=== PATIENT | female | born 1950 | race African-American/Black ===

== ENCOUNTER 2018-03-24 21:30 | Inpatient (IN) | payer MEDICARE, OTHER ==
[~2018-03-24] VITALS: Ht 157.5 cm; Wt 87.1 kg
--- NOTE | 2018-03-24 21:35 | NUR ---
PT TO ER BED 4. BIBRA FROM HOME C/O ABD PAIN FROM GASTRIC SLEEVE CAUSING HER TO BE SOB. PT PLACED ON RUNNER MAN. VSS/RESP EVEN UNLABORED/NAD NOTED/SKIN WARM AND DRY/AFEBRILE/DENIES N-V-D/AOX4. AWAITNG MD AVILA.
--- NOTE | 2018-03-24 22:27 | NUR ---
Sharona shirley in [facility] - 03/24/18 at 2232 by SRUTHI URINE SPECIMEN OBTAINED AND SENT TO THE LAB.
[2018-03-24 22:35] LABS: BASOPHILS % (AUTO) 0.4 % (0.0-2.0); EOSINOPHILS % (AUTO) 2.9 % (0.0-6.0); HEMATOCRIT 35 % (33-45); HEMOGLOBIN 11.5 g/dL (11.5-14.8); LYMPHOCYTES # (AUTO) 3.1 /CMM (0.8-4.8); LYMPHOCYTES % (AUTO) 32.1 % (20.0-44.0); MEAN CORPUSCULAR HEMOGLOBIN 32 PG (26.0-33.0); MEAN CORPUSCULAR HGB CONC 33 g/dl (31.0-36.0); MEAN CORPUSCULAR VOLUME 96 fL (82-100); MONOCYTES # (AUTO) 0.5 /CMM (0.1-1.30); MONOCYTES % (AUTO) 4.9 % (2.0-12.0); NEUTROPHILS # (AUTO) 5.7 /CMM (1.8-8.9); NEUTROPHILS % (AUTO) 59.7 % (43.0-81.0); PLATELET COUNT (AUTO) 298 /CMM (150-450); RDW COEFFICIENT OF VARIATION 15.6 (11.5-15.0); RED BLOOD CELL COUNT(AUTO) 3.64 MIL/uL (4.0-5.2); WHITE BLOOD COUNT (AUTO) 9.6 K/uL (4.3-11.0)
[2018-03-24 22:47] LABS: CALCIUM, SERUM 8.5 mg/dL (8.5-10.1); CREATININE 1.4 mg/dL (0.6-1.3); POTASSIUM 3.4 mmol/L (3.5-5.1)
[2018-03-24] MEDS ORDERED: HYDROCODONE/APAP 5/325MG 1 EACH TABLET ONE (22:48)
--- NOTE | 2018-03-24 22:51 | NUR ---
PT TO CT VIA STRETCHER, VSS.
[2018-03-24 22:58] LABS: ALBUMIN 3.6 g/dL (3.4-5.0); BILIRUBIN,DIRECT 0.2 mg/dL (0.0-0.2); BILIRUBIN,TOTAL 0.6 mg/dL (0.2-1.0); TOTAL PROTEIN, SERUM 7.7 g/dL (6.4-8.2)
[2018-03-24] MEDS ORDERED: HYDROCODONE/APAP 5/325MG 1 EACH TABLET PO ONE (23:00)
--- NOTE | 2018-03-24 23:50 | NUR ---
CALLED NURSE SUP FOR MED/SURG BED
--- NOTE | 2018-03-24 23:52 | NUR ---
PAGED [facility] FOR PANEL - RETAIL ACCOUNT EXECUTIVE JUAN MOYA
[2018-03-24] MEDS ORDERED: HYDR12.5 PO (23:55)
[2018-03-24] MEDS ORDERED: LORA-259 PO (23:55)
[2018-03-24] MEDS ORDERED: FLUO10CA26 PO (23:55)
[2018-03-24] MEDS ORDERED: LEVO137T24 PO (23:55)
[2018-03-24] MEDS ORDERED: LOSA25TA13 PO (23:55)
[2018-03-24] MEDS ORDERED: METO-356 PO (23:55)
--- NOTE | 2018-03-24 23:55 | NUR ---
UNABLE TO OBTAIN URINE, MD MADE AWARE. NO NEW ORDERS RECEIVED.
--- NOTE | 2018-03-25 00:10 | NUR ---
MD MOYA AT BEDSIDE SPEAKING WITH PT.
--- NOTE | 2018-03-25 00:14 | NUR ---
Note fern in ED - 03/25/18 at 0015 by SRUTHI G IV TO L HAND X 1 ATTEMPT USING ASEPTIC TECH. IV FLUSHES EASILY WITH NS, NO S/S INFILTRATION NOTED AT THIS TIME.
--- NOTE | 2018-03-25 00:15 | NUR ---
20G IV TO L HAND X 1 ATTEMPT USING ASEPTIC TECH. IV FLUSHES EASILY WITH NS, NO S/S INFILTRATION NOTED AT THIS TIME.
[2018-03-25] MEDS ORDERED: ONDANSETRON HCL/PF 4 MG/2 ML VIAL ONE (00:26)
[2018-03-25] MEDS ORDERED: MORPHINE SULFATE INJ 4 MG/ML DISP.SYRIN ONE (00:26)
--- NOTE | 2018-03-25 00:42 | NUR ---
REPORT GIVEN TO JUAN LUIS SHEETS FOR GLADIS.
--- NOTE | 2018-03-25 00:44 | NUR ---
URINE SPECIMEN OBTAINED AND SENT TO THE LAB.
[2018-03-25 00:55] LABS: APPEARANCE,URINE CLEAR (CLEAR); BILIRUBIN,URINE NEGATIVE (NEGATIVE); BLOOD, URINE 1+ Ery/uL (NEGATIVE); COLOR,URINE YELLOW (YELLOW); KETONES,URINE NEGATIVE (NEGATIVE); LEUKOCYTE ESTERASE ,URINE NEGATIVE (NEGATIVE); NITRITE, URINE NEGATIVE (NEGATIVE); PROTEIN,URINE NEGATIVE (NEGATIVE); UGLUCOSE NEGATIVE (NEGATIVE); UROBILINOGEN,URINE 0.2 EU/dL (0.2)
--- NOTE | 2018-03-25 00:57 | NUR ---
PT TRANSPORTED VIA STRETCHER TO MS 308 WITH RN. BACK.
[2018-03-25] MEDS ORDERED: ONDANSETRON HCL/PF 4 MG/2 ML VIAL IVP ONE (01:00)
[2018-03-25] MEDS ORDERED: MORPHINE SULFATE INJ 2 MG/ML DISP.SYRIN IV ONE (01:00)
[2018-03-25 01:03] LABS: RBC,URINE 0-2 /HPF (0-2)
[2018-03-25 01:04] LABS: BACTERIA,URINE None seen /HPF (None Seen); SQUAMOUS EPITHELIAL CELL,UR Few /HPF (None Seen); WBC,URINE 0-2 /HPF (0-3)
--- NOTE | 2018-03-25 01:06 | NUR ---
Admit to Rm #[id number] on Med Surg status Dx Fx Compresssion Fx T12, A/Ox4 lying on bed C/o 2 lower back pain after receiving morphine in Ed. Lungs sound clear bilat. abd soft non tender b/s x4 M.A.E. good hand filling hand denies of pain radiating down leg. C/o insomonia will contact desk monitor Dr for sleep medicine. S/l 20 ga to intact. Also will request dania ayala for hx bipolar and pt is not taking any mood stablizer meds. skin w/d siderails up call light within reach.
[2018-03-25] MEDS ORDERED: ZOLP10TA2 PO (01:45)
[2018-03-25] MEDS ORDERED: ONDANSETRON HCL/PF 4 MG/2 ML VIAL IVP PRN (02:00)
[2018-03-25] MEDS ORDERED: MAGNESIUM HYDROXIDE 30 ML UDC PO PRN (02:00)
[2018-03-25] MEDS ORDERED: Z GUARD REMEDY 2 OZ OINT TP PRN (02:00)
[2018-03-25] MEDS ORDERED: ZOLPIDEM TARTRATE 5 MG TABLET PO PRN (02:00)
[2018-03-25] MEDS ORDERED: ACETAMINOPHEN 325 MG TABLET PO PRN (02:00)
--- NOTE | 2018-03-25 02:03 | NUR ---
Given ambien 10 mg for insomonia.
[2018-03-25] MEDS: ZOLPIDEM TARTRATE 10 MG TABLET PO PRN ×2 (02:34→23:01)
[2018-03-25] MEDS: IV NS 0.9% 1,000 ML IV PRN (03:55)
[2018-03-25] MEDS ORDERED: LORAZEPAM 1 MG TABLET PO PRN (04:00)
--- NOTE | 2018-03-25 05:23 | NUR ---
lYING IN BED EYES CLOSED REP EVEN AND UNLAB. SLEPT 3.5 HRS IV N.S. 09% INFUSING @ 75 CCHR TO LEFT HAND CHANELL WELL. RESTING COMFORTABLY DENIES OF ANY DISTRESS. SIDERAILS UP cALL LIGHT WITHIN REACH BED WHEEL LOCKED HEIGHT BED IN LOWEST POSITION. FALL PRECAUTIONS OBSERVED.
[2018-03-25 06:20] VITALS: BP 132/81
[2018-03-25 06:36] LABS: BASOPHILS % (AUTO) 0.5 % (0.0-2.0); EOSINOPHILS % (AUTO) 3.3 % (0.0-6.0); HEMATOCRIT 34 % (33-45); HEMOGLOBIN 11.4 g/dL (11.5-14.8); LYMPHOCYTES # (AUTO) 2.6 /CMM (0.8-4.8); LYMPHOCYTES % (AUTO) 29.7 % (20.0-44.0); MEAN CORPUSCULAR HEMOGLOBIN 32 PG (26.0-33.0); MEAN CORPUSCULAR HGB CONC 33 g/dl (31.0-36.0); MEAN CORPUSCULAR VOLUME 96 fL (82-100); MONOCYTES # (AUTO) 0.5 /CMM (0.1-1.30); MONOCYTES % (AUTO) 5.1 % (2.0-12.0); NEUTROPHILS # (AUTO) 5.5 /CMM (1.8-8.9); NEUTROPHILS % (AUTO) 61.4 % (43.0-81.0); PLATELET COUNT (AUTO) 282 /CMM (150-450); RDW COEFFICIENT OF VARIATION 15.7 (11.5-15.0); RED BLOOD CELL COUNT(AUTO) 3.56 MIL/uL (4.0-5.2); WHITE BLOOD COUNT (AUTO) 8.9 K/uL (4.3-11.0)
[2018-03-25 06:58] LABS: CALCIUM, SERUM 8.7 mg/dL (8.5-10.1); CREATININE 1.3 mg/dL (0.6-1.3); MAGNESIUM 1.9 mg/dL (1.8-2.4); PHOSPHORUS 4.3 mg/dL (2.5-4.9); POTASSIUM 3.4 mmol/L (3.5-5.1)
[2018-03-25] MEDS: LEVOTHYROXINE SODIUM 137 MCG TABLET PO SCH ×2 (07:05→08:58)
--- NOTE | 2018-03-25 07:30 | NUR ---
RN MS NOTES PT IN BED, ASLEEP, BREATHING PATTERN NORMAL AND NOT LABORED, NO SIGN OF PAIN OR DISTRESS, ON LOW BED FOR SAFETY, CALL LIGHT WITHIN REACH, KEPT ORAL AND MAXILLOFACIAL SURGERY RESIDENT BED.
[2018-03-25 08:00] VITALS: BP 139/80
[2018-03-25] MEDS: HYDROCODONE/APAP 5/325MG 1 EACH TABLET PO PRN ×3 (08:48→18:30)
[2018-03-25] MEDS: LOSARTAN POTASSIUM 25 MG TABLET PO SCH (08:50)
[2018-03-25] MEDS: HYDROCHLOROTHIAZIDE 25 MG TABLET PO SCH (08:50)
[2018-03-25] MEDS: Fluoxetine 10 mg capsule PO SCH (08:50)
[2018-03-25] MEDS: METOPROLOL SUCCINATE 25 MG TAB.SR.24H PO SCH (08:51)
[2018-03-25] MEDS: HEPARIN SODIUM, PORCINE 5000 UNITS/1 ML VIAL SQ SCH ×2 (09:00→21:16)
[2018-03-25] MEDS ORDERED: LORAZEPAM 1 MG TABLET PO SCH (09:00)
[2018-03-25] MEDS ORDERED: POTASSIUM CHLORIDE 20 MEQ TAB.PRT.SR PO ONE (11:00)
--- NOTE | 2018-03-25 13:00 | NUR ---
RN MS NOTES PT IN BED, AWAKE, ALERT AND ORIENTED, PAIN MEDICATION GIVEN FOR LOWER BACK PAIN, PT STATED THAT NORCO HELPS HER WITH HER PAIN SHE IS TAKING IT AT HOME, SEEN BY DR. MOSQUERA, TASIA GRADY ORDERED, SPOKE WITH CHARLY OF [employer]. NEEDS ATTENDED, CALL LIGHT WITHIN REACH.
[2018-03-25 16:00] VITALS: BP 148/88
--- NOTE | 2018-03-25 17:48 | NUR ---
JUAN LUIS DEL ROSARIO MADE A FOLLOW UP CALL TO [employer] [phone], PER TAISHA THERE IS A REQUEST ALREADY AND SOMEONE FROM THEIR [employer] WILL CONTACT US.
--- NOTE | 2018-03-25 18:48 | NUR ---
RN MS NOTES PT IN BED, AWAKE, ALERT AND ORIENTED, PAIN MEDICATION GIVEN FOR LOWER BACK PAIN ORDERED, CALL LIGHT WITHIN REACH, ALL NEEDS ATTENDED, AWAITING TLSO BRACE FITTING, SPOKE WITH TAISHA AND SAID HE WILL COME IN THE MORNING.
--- NOTE | 2018-03-25 19:18 | NUR ---
CAREER CENTER ADVISOR INITIAL NOTES Report received at bedside. Patient received in bed, awake and verbally responsive. Alert and oriented x4. Denies any pain at the moment. Stated that she's comfortable at the moment. Not in any type of distress. No SOB or labored breathing noted. Safety measures in place. Will continue to monitor and assess the patient. Addendum: 03/26/18 at 0628 by GUILLERMO ARCE RN CORRECTION RN INITIAL NOTES
[2018-03-25 19:59] VITALS: BP 151/84
[2018-03-26] MEDS: HYDROCODONE/APAP 5/325MG 1 EACH TABLET PO PRN ×4 (01:29→22:31)
--- NOTE | 2018-03-26 06:07 | NUR ---
ANATOMY PROFESSOR CLOSING NOTES Patient remained in bed, awake and verbally responsive. Aferbile. Complaints of back pain with help of pain mgmt (last given @0555am). IV on left hand #20g: patent and intact with NS 75ml/hr running, tolerating well. Not in any type of distress. No SOB or labored breathing noted. All needs anticipated and met. Assisted with ambulating. Safety measures in place. Bed in lowest position with call light within reach. Will continue to monitor and assess the patient. Addendum: 03/26/18 at 0627 by GUILLERMO ARCE RN CORRECTION MS RN CLOSING NOTES
[2018-03-26] MEDS: IV NS 0.9% 1,000 ML IV PRN ×2 (06:32→20:35)
[2018-03-26 06:36] LABS: BASOPHILS % (AUTO) 0.5 % (0.0-2.0); HEMATOCRIT 37 % (33-45); HEMOGLOBIN 12.3 g/dL (11.5-14.8); LYMPHOCYTES # (AUTO) 2.8 /CMM (0.8-4.8); LYMPHOCYTES % (AUTO) 35.1 % (20.0-44.0); MEAN CORPUSCULAR HEMOGLOBIN 32 PG (26.0-33.0); MEAN CORPUSCULAR HGB CONC 34 g/dl (31.0-36.0); MEAN CORPUSCULAR VOLUME 96 fL (82-100); MONOCYTES # (AUTO) 0.4 /CMM (0.1-1.30); MONOCYTES % (AUTO) 4.9 % (2.0-12.0); NEUTROPHILS # (AUTO) 4.4 /CMM (1.8-8.9); NEUTROPHILS % (AUTO) 55.5 % (43.0-81.0); PLATELET COUNT (AUTO) 281 /CMM (150-450); RDW COEFFICIENT OF VARIATION 15.6 (11.5-15.0); RED BLOOD CELL COUNT(AUTO) 3.83 MIL/uL (4.0-5.2)
[2018-03-26 06:42] LABS: CALCIUM, SERUM 8.3 mg/dL (8.5-10.1); CREATININE 1.3 mg/dL (0.6-1.3); MAGNESIUM 1.6 mg/dL (1.8-2.4); PHOSPHORUS 3.8 mg/dL (2.5-4.9); POTASSIUM 3.8 mmol/L (3.5-5.1)
--- NOTE | 2018-03-26 07:18 | NUR ---
MS RN NOTES No changes in patient's condition. Report given/endorsed to Melo RN
--- NOTE | 2018-03-26 07:24 | NUR ---
MS RN OPENING NOTES PATIENT RECEIVED AWAKE IN BED IN NO ACUTE SIGNS OF DISTRESS. HOB ELEVATED. A/O X4. ABLE TO VERBALIZED NEEDS, DENIES ANY PAIN OR DISCOMFORTS AT THIS TIME. ON ROOM AIR, RESPIRATIONS EVEN AND UNLABORED. IV ACCESS ON LEFT HAND INTACT AND PATENT, IVF OF NS @ 75ML/HR INFUSING, NO/S/S OF INFILTRATIONS NOTED. SAFETY MEASURES IN PLACE. BED IN LOW/LOCKED POSITION WITH SIDE-RAILS UP X 2. CALL LIGHT IN WITH REACH. WILL CONTINUE TO MONITOR PT ACCORDINGLY.
[2018-03-26 08:00] VITALS: BP 139/71
[2018-03-26] MEDS: METOPROLOL SUCCINATE 25 MG TAB.SR.24H PO SCH (08:48)
[2018-03-26] MEDS: HYDROCHLOROTHIAZIDE 25 MG TABLET PO SCH (08:48)
[2018-03-26] MEDS: LOSARTAN POTASSIUM 25 MG TABLET PO SCH (08:48)
[2018-03-26] MEDS: Fluoxetine 10 mg capsule PO SCH (08:49)
[2018-03-26] MEDS: HEPARIN SODIUM, PORCINE 5000 UNITS/1 ML VIAL SQ SCH ×2 (08:52→21:14)
[2018-03-26] MEDS: Magnesium 1GM/D5W 100ML PREMIX 100 ML IV SCH ×2 (09:46→11:10)
--- NOTE | 2018-03-26 10:35 | NUR ---
RN NOTES SEEN AND EVALUATED BY DR MAHER WITH ORDER TO DO CT CERVICAL SPINE W/O CONTRAST. PATIENT JUST LEFT TO HAVE THE CT SCAN VIA WHEELCHAIR.
--- NOTE | 2018-03-26 11:20 | NUR ---
RN NOTES/PAIN MANAGEMENT PT C/O PAIN ON HER LOWER BACK WITH PAIN SCALE OF 7/10, PRN NORCO 5/325MG PO GIVEN. WILL CONTINUE TO MONITOR.
--- NOTE | 2018-03-26 13:20 | NUR ---
RN NOTES TLSO BRACE DELIVERED AND UMBRELLA MENDER FITTED AND ADJUSTED BRACE TO PT'S BODY.
--- NOTE | 2018-03-26 15:23 | NUR ---
RN NOTES PATIENT WITH LOW LEVEL OF MG 1.6 TODAY, REPLACED WITH 1G/D5W 100ML X 2 BAGS ORDERED. WILL CONTINUE TO MONITOR.
[2018-03-26 16:00] VITALS: BP 137/78
--- NOTE | 2018-03-26 18:14 | NUR ---
MS RN CLOSING NOTES PATIENT AWAKE AND RESTING IN BED @ MODERATE HIGH BACKREST AT THIS TIME. A/O X4. ABLE TO MAKE NEEDS KNOWN. PT USES TLSO BRACE WHEN OUT OF BED. ON ROOM AIR, RESPIRATIONS EVEN WITH NO SOB NOTED. IV ACCESS ON LEFT HAND INTACT AND PATENT, IVF OF NS @ 75ML/HR INFUSING WELL, NO/S/S OF INFILTRATIONS NOTED. ALL REQUIRED NURSING CARE RENDERED. ALL SAFETY MEASURES KEPT IN PLACE. BED IN LOW/LOCKED POSITION WITH SIDE-RAILS UP X 2. CALL LIGHT AND BEDSIDE TABLE PLACED WITHIN EASY REACH OF PT. WILL ENDORSE TO PERSONAL LINES SALES EXECUTIVE NURSE FOR GLADIS..
--- NOTE | 2018-03-26 19:30 | NUR ---
MS/RN RECEIVE PATIENT AWAKE, ALERT, ORIENTED, COMFORTABLE, NO C/O PAIN, NO DISTRESS NOTED, CALL LIGHT WITHIN REACH. WILL MONITOR.
[2018-03-26 20:12] VITALS: BP 134/71
--- NOTE | 2018-03-26 22:00 | NUR ---
MS/RN IV LEAKING, IV REMOVED, ATTEMPTED TO INSERT IV X 2, NOT SUCCESSFUL. COCO, RN, ATTEMPTED X 3, NOT SUCCESSFUL, AIRCRAFT LAY OUT WORKER LV ATTEMPTED X 2, NOT SUCCESSFUL. PATIENT REFUSED ANYMORE IV INSERTION AT THIS TIME AND WANTED TO SLEEP. WILL TRY TO GET RN FROM ICU WHEN PATIENT WAKES UP LATER.
[2018-03-26] MEDS: ZOLPIDEM TARTRATE 10 MG TABLET PO PRN (23:31)
--- NOTE | 2018-03-27 01:20 | NUR ---
MS/RN PATIENT IS SLEEPING AT THIS TIME, EASILY AROUSABLE, APPEAR COMFORTABLE, NO SIGNS OF DISTRESS NOTED, CALL LIGHT IN REACH. WILL CONTINUE TO MONITOR.
--- NOTE | 2018-03-27 05:27 | NUR ---
MS/RN PATIENT WILL BE TRANSFERRED TO MS2 ROOM 205-2, REPORT GIVEN TO JUAN LUIS SILVA.
--- NOTE | 2018-03-27 06:44 | NUR ---
MS/RN PATIENT WAS TRANSFERRED TO ROOM 205-2 IN STABLE CONDITION.
--- NOTE | 2018-03-27 07:00 | NUR ---
MS RN NOTE: RECEIVED REPORT FROM PIERCE, PATIENT FROM [facility], NO ACUTE DISTRESS NOTED. BREATHING EVEN AND UNLABORED, NO SOB NOTED. IV TO RIGHT WRIST IN PLACE, INFUSING NS AT 75ML/HR. BED LOCKED AND IN LOWEST POSITION, CALL LIGHT IN REACH. WILL CONTINUE TO MONITOR.
[2018-03-27 08:00] VITALS: BP 142/65
--- NOTE | 2018-03-27 08:00 | NUR ---
MS RN AM NOTES PATIENT RECEIVED AWAKE IN BED IN NO ACUTE SIGNS OF DISTRESS. HOB ELEVATED. A/O X4. ABLE TO VERBALIZED NEEDS, DENIES ANY PAIN OR DISCOMFORTS AT THIS TIME. ON ROOM AIR, RESPIRATIONS EVEN AND UNLABORED. IV ACCESS ON RT WRIST INTACT AND PATENT, IVF OF NS @ 75ML/HR INFUSING, NO/S/S OF INFILTRATIONS NOTED. SAFETY MEASURES IN PLACE. BED IN LOW/LOCKED POSITION WITH SIDE-RAILS UP X 2. CALL LIGHT IN WITH REACH. WILL CONTINUE TO MONITOR PT ACCORDINGLY.
[2018-03-27] MEDS: Fluoxetine 10 mg capsule PO SCH (08:41)
[2018-03-27] MEDS: LEVOTHYROXINE SODIUM 137 MCG TABLET PO SCH (08:41)
[2018-03-27] MEDS: HYDROCODONE/APAP 5/325MG 1 EACH TABLET PO PRN (08:42)
[2018-03-27] MEDS: HYDROCHLOROTHIAZIDE 25 MG TABLET PO SCH (08:42)
[2018-03-27] MEDS: METOPROLOL SUCCINATE 25 MG TAB.SR.24H PO SCH (08:42)
[2018-03-27] MEDS: HEPARIN SODIUM, PORCINE 5000 UNITS/1 ML VIAL SQ SCH (08:43)
[2018-03-27] MEDS: LOSARTAN POTASSIUM 25 MG TABLET PO SCH (08:43)
[2018-03-27 16:00] VITALS: BP 157/89
--- NOTE | 2018-03-27 17:10 | NUR ---
DISCHARGED PT HOME WITH HOME HEALTH OF CHOICE OF THE PT.WITH STABLE V/S ACCOMPANIED BY HER SIGNIFICANT OTHER,LEANA.REMOVED PT'S IV H/L TO RT WRIST WITH NO BLEEDING NOTED.DENIES ANY PAIN OR DISTRESS.IN A MCCRAY TO GO HOME.
[2018-03-28 05:11] LABS: *SPE A/G RATIO 0.9 (0.7-1.7); *SPE ALBUMIN 3.2 g/dL (2.9-4.4); *SPE ALPHA-1-GLOBULIN 0.2 g/dL (0.0-0.4); *SPE ALPHA-2-GLOBULIN 0.8 g/dL (0.4-1.0); *SPE BETA GLOBULIN 1.1 g/dL (0.7-1.3); *SPE GLOBULIN, TOTAL 3.5 g/dL (2.2-3.9); *SPE M-SPIKE Not Observed g/dL (Not Observed); *SPEGAMMA GLOBULIN 1.4 g/dL (0.4-1.8)
[2018-03-29 12:18] LABS: *PEUR ALBUMIN 46.4 % (.); *PEUR ALPHA-1-GLOBULIN 6.5 % (.); *PEUR ALPHA-2-GLOBULIN 9.6 % (.); *PEUR BETA GLOBULIN 17.4 % (.); *PEUR GAMMA GLOBULIN 20.1 % (.)
== END 2018-03-27 17:10 | disposition home health service (06) | DRG 542 ==
LOC: ER 21:32 → MED 03-25 00:22 → MEDSG2 03-27 06:41
PROVIDERS: ADMIT Nurse Practitioner Acute Care; ATTEND Nurse Practitioner Acute Care
DX: M48.54XA Collapsed vertebra, not elsewhere classified, thoracic region, initial encounter for fracture (principal); N17.0 Acute kidney failure with tubular necrosis; I12.9 Hypertensive chronic kidney disease with stage 1 through stage 4 chronic kidney disease, or unspecified chronic kidney disease; N18.9 Chronic kidney disease, unspecified; E87.6 Hypokalemia; W18.30XA Fall on same level, unspecified, initial encounter; Y92.89 Other specified places as the place of occurrence of the external cause; G62.9 Polyneuropathy, unspecified; G89.29 Other chronic pain
CPT/HCPCS: 36415; 72125-TC; 72128-TC; 72131-TC; 80048-TC; 80061-TC; 80076-TC; 81000-TC; 83735-TC; 84100-TC; 84155; 84156; 84165; 84166; 84439-TC; 84443-TC; 85025-TC; 87081-TC; A4606; J1644; J2270; J2405; J3475; J7030; Z7610

== ENCOUNTER 2019-02-03 21:41 | Inpatient (IN) | payer MEDICARE, MEDICAID ==
[~2019-02-03] VITALS: Ht 157.5 cm; Wt 79.4 kg
[~2019-02-03 21:41] MED LIST: FLUO10CA26 PO; HYDR12.5 PO; LEVO137T24 PO; LORA-259 PO; LOSA25TA27 PO; METO-356 PO; ZOLP10TA2 PO
[2019-02-03 23:08] LABS: APPEARANCE,URINE Clear (CLEAR); BILIRUBIN,URINE SMALL (NEGATIVE); BLOOD, URINE Moderate Ery/uL (NEGATIVE); COLOR,URINE Yellow (YELLOW); KETONES,URINE Negative (NEGATIVE); LEUKOCYTE ESTERASE ,URINE Small (NEGATIVE); NITRITE, URINE Negative (NEGATIVE); PH,URINE 5.5 (5.0-8.0); PROTEIN,URINE 30 mg/dl (NEGATIVE); UGLUCOSE Negative (NEGATIVE); UROBILINOGEN,URINE 0.2 EU/dL (0.2)
[2019-02-03 23:13] LABS: BASOPHILS % (AUTO) 0.4 % (0.0-2.0); EOSINOPHILS % (AUTO) 2.7 % (0.0-6.0); HEMATOCRIT 36 % (33-45); HEMOGLOBIN 12.1 g/dL (11.5-14.8); LYMPHOCYTES # (AUTO) 1.8 /CMM (0.8-4.8); MEAN CORPUSCULAR HGB CONC 34 g/dl (31.0-36.0); MEAN CORPUSCULAR VOLUME 94 fL (82-100); MONOCYTES # (AUTO) 0.4 /CMM (0.1-1.30); MONOCYTES % (AUTO) 5.1 % (2.0-12.0); NEUTROPHILS # (AUTO) 6.2 /CMM (1.8-8.9); NEUTROPHILS % (AUTO) 70.8 % (43.0-81.0); PLATELET COUNT (AUTO) 350 /CMM (150-450); RED BLOOD CELL COUNT(AUTO) 3.79 MIL/uL (4.0-5.2); WHITE BLOOD COUNT (AUTO) 8.7 K/uL (4.3-11.0)
[2019-02-03 23:25] LABS: BACTERIA,URINE None seen /HPF (None Seen); SQUAMOUS EPITHELIAL CELL,UR Few /HPF (None Seen)
[2019-02-03 23:36] LABS: CALCIUM, SERUM 9.1 mg/dL (8.5-10.1); CREATININE 3.5 mg/dL (0.6-1.3); POTASSIUM 3.7 mmol/L (3.5-5.1)
[2019-02-03 23:42] LABS: ALBUMIN 3.7 g/dL (3.4-5.0); BILIRUBIN,DIRECT 0.2 mg/dL (0.0-0.2); SALICYLATE 10.3 mg/dL (2.8-20.0); TOTAL PROTEIN, SERUM 8.1 g/dL (6.4-8.2)
[2019-02-04] MEDS ORDERED: IV NS 0.9% 1,000 ML BAG IV ONE
[2019-02-04] MEDS ORDERED: Z GUARD REMEDY 2 OZ OINT TP PRN (01:00)
[2019-02-04] MEDS ORDERED: MAGNESIUM HYDROXIDE 30 ML UDC PO PRN (01:00)
[2019-02-04] MEDS ORDERED: ONDANSETRON HCL/PF 4 MG/2 ML VIAL IVP PRN (01:00)
[2019-02-04] MEDS ORDERED: LEVOFLOXACIN (500MG) 500 MG TABLET PO SCH (01:00)
[2019-02-04] MEDS ORDERED: MAG HYDROX/AL HYDROX/SIMETH 30 ML UDC PO PRN (01:00)
[2019-02-04] MEDS ORDERED: LEVOFLOXACIN (250MG) 250 MG TABLET PO SCH (01:30)
[2019-02-04 01:36] VITALS: BP 111/66
[2019-02-04] MEDS: ENOXAPARIN SODIUM 30 MG/0.3 ML DISP.SYRIN SQ SCH (02:50)
[2019-02-04] MEDS ORDERED: diphenhydrAMINE HCL 25 MG CAPSULE PO ONE (03:30)
[2019-02-04] MEDS: IV NS 0.9% 1,000 ML IV PRN (05:35)
[2019-02-04] MEDS: ACETAMINOPHEN 325 MG TABLET PO PRN ×3 (06:23→18:13)
[2019-02-04 06:49] LABS: BASOPHILS % (AUTO) 0.5 % (0.0-2.0); EOSINOPHILS % (AUTO) 2.8 % (0.0-6.0); HEMATOCRIT 32 % (33-45); LYMPHOCYTES # (AUTO) 2.1 /CMM (0.8-4.8); LYMPHOCYTES % (AUTO) 25.1 % (20.0-44.0); MEAN CORPUSCULAR HGB CONC 34 g/dl (31.0-36.0); MEAN CORPUSCULAR VOLUME 93 fL (82-100); MONOCYTES # (AUTO) 0.5 /CMM (0.1-1.30); MONOCYTES % (AUTO) 6.6 % (2.0-12.0); NEUTROPHILS # (AUTO) 5.3 /CMM (1.8-8.9); PLATELET COUNT (AUTO) 284 /CMM (150-450); RED BLOOD CELL COUNT(AUTO) 3.46 MIL/uL (4.0-5.2); WHITE BLOOD COUNT (AUTO) 8.2 K/uL (4.3-11.0)
[2019-02-04 07:02] LABS: THYROID STIMULATING HORMONE 0.126 uIU/mL (0.358-3.74)
[2019-02-04 07:09] LABS: BILIRUBIN,TOTAL 1.1 mg/dL (0.2-1.0); CALCIUM, SERUM 8.2 mg/dL (8.5-10.1); CREATININE 3.2 mg/dL (0.6-1.3); MAGNESIUM 1.9 mg/dL (1.8-2.4); PHOSPHORUS 5.2 mg/dL (2.5-4.9); POTASSIUM 3.7 mmol/L (3.5-5.1); TOTAL PROTEIN, SERUM 6.7 g/dL (6.4-8.2)
[2019-02-04 08:00] VITALS: BP 100/51
[2019-02-04] MEDS ORDERED: HYDROCHLOROTHIAZIDE 25 MG TABLET PO SCH (09:00)
[2019-02-04] MEDS: METOPROLOL SUCCINATE 25 MG TAB.SR.24H PO SCH (09:00)
[2019-02-04] MEDS ORDERED: LOSARTAN POTASSIUM 25 MG TABLET PO SCH (09:00)
[2019-02-04] MEDS: Fluoxetine 10 mg capsule PO SCH (09:10)
[2019-02-04] MEDS: LORAZEPAM 1 MG TABLET PO SCH ×3 (09:10→17:15)
[2019-02-04] MEDS: LEVOTHYROXINE SODIUM 137 MCG TABLET PO SCH (09:10)
[2019-02-04] MEDS: DOCUSATE SODIUM 100 MG CAPSULE PO SCH ×2 (09:10→17:15)
[2019-02-04] MEDS: PANTOPRAZOLE 40 MG TABLET.DR PO SCH (09:10)
[2019-02-04 16:00] VITALS: BP 95/56
[2019-02-04 17:30] VITALS: BP 95/56
[2019-02-04] MEDS ORDERED: ZOLPIDEM TARTRATE 10 MG TABLET PO SCH (18:00)
[2019-02-04 20:00] VITALS: BP 126/75
[2019-02-04 21:39] LABS: CREATININE, URINE 69.3 MG/DL (30.0-125.0)
[2019-02-04 22:19] LABS: APPEARANCE,URINE CLEAR (CLEAR); BILIRUBIN,URINE NEGATIVE (NEGATIVE); BLOOD, URINE TRACE Ery/uL (NEGATIVE); COLOR,URINE YELLOW (YELLOW); KETONES,URINE NEGATIVE (NEGATIVE); LEUKOCYTE ESTERASE ,URINE NEGATIVE (NEGATIVE); NITRITE, URINE NEGATIVE (NEGATIVE); PROTEIN,URINE NEGATIVE (NEGATIVE); UGLUCOSE NEGATIVE (NEGATIVE); UROBILINOGEN,URINE 0.2 EU/dL (0.2)
[2019-02-04 22:25] LABS: BACTERIA,URINE Rare /HPF (None Seen); RBC,URINE 0-2 /HPF (0-2); SQUAMOUS EPITHELIAL CELL,UR Few /HPF (None Seen)
[2019-02-04 22:48] LABS: EOSINOPHIL,URINE None Seen
[2019-02-04] MEDS: ZOLPIDEM TARTRATE 10 MG TABLET PO SCH (22:51)
[2019-02-05] MEDS: ENOXAPARIN SODIUM 30 MG/0.3 ML DISP.SYRIN SQ SCH (00:23)
[2019-02-05] MEDS: ACETAMINOPHEN 325 MG TABLET PO PRN ×3 (05:35→20:16)
[2019-02-05] MEDS: IV NS 0.9% 1,000 ML IV PRN (06:33)
[2019-02-05 07:52] LABS: BILIRUBIN,TOTAL 0.8 mg/dL (0.2-1.0); CALCIUM, SERUM 8.2 mg/dL (8.5-10.1); CREATININE 2.3 mg/dL (0.6-1.3); MAGNESIUM 1.8 mg/dL (1.8-2.4); PHOSPHORUS 3.6 mg/dL (2.5-4.9); POTASSIUM 3.3 mmol/L (3.5-5.1); TOTAL PROTEIN, SERUM 6.8 g/dL (6.4-8.2)
[2019-02-05 08:00] VITALS: BP 130/70
[2019-02-05 08:00] LABS: BASOPHILS % (AUTO) 0.3 % (0.0-2.0); EOSINOPHILS % (AUTO) 4.3 % (0.0-6.0); HEMATOCRIT 33 % (33-45); LYMPHOCYTES # (AUTO) 1.5 /CMM (0.8-4.8); LYMPHOCYTES % (AUTO) 25.4 % (20.0-44.0); MEAN CORPUSCULAR HGB CONC 34 g/dl (31.0-36.0); MEAN CORPUSCULAR VOLUME 93 fL (82-100); MONOCYTES # (AUTO) 0.5 /CMM (0.1-1.30); MONOCYTES % (AUTO) 8.1 % (2.0-12.0); NEUTROPHILS # (AUTO) 3.7 /CMM (1.8-8.9); NEUTROPHILS % (AUTO) 61.9 % (43.0-81.0); PLATELET COUNT (AUTO) 273 /CMM (150-450); RED BLOOD CELL COUNT(AUTO) 3.53 MIL/uL (4.0-5.2)
[2019-02-05] MEDS: LORAZEPAM 1 MG TABLET PO SCH ×4 (08:19→21:24)
[2019-02-05] MEDS: Fluoxetine 10 mg capsule PO SCH (08:19)
[2019-02-05] MEDS: LEVOTHYROXINE SODIUM 137 MCG TABLET PO SCH (08:19)
[2019-02-05] MEDS: DOCUSATE SODIUM 100 MG CAPSULE PO SCH ×2 (08:19→17:00)
[2019-02-05] MEDS: PANTOPRAZOLE 40 MG TABLET.DR PO SCH (08:20)
[2019-02-05] MEDS: METOPROLOL SUCCINATE 25 MG TAB.SR.24H PO SCH (08:20)
[2019-02-05] MEDS ORDERED: LEVOFLOXACIN (250MG) 250 MG TABLET PO SCH (09:00)
[2019-02-05] MEDS ORDERED: POTASSIUM CHLORIDE 10 MEQ TABLET.SA PO ONE (13:00)
[2019-02-05 16:00] VITALS: BP 132/78
[2019-02-05 20:17] VITALS: BP 128/66
[2019-02-05] MEDS: ZOLPIDEM TARTRATE 10 MG TABLET PO SCH (23:05)
[2019-02-06] MEDS: ENOXAPARIN SODIUM 30 MG/0.3 ML DISP.SYRIN SQ SCH (01:21)
[2019-02-06] MEDS: ACETAMINOPHEN 325 MG TABLET PO PRN ×2 (02:03→08:20)
[2019-02-06] MEDS: IV NS 0.9% 1,000 ML IV PRN (05:57)
[2019-02-06 08:00] VITALS: BP 141/71
[2019-02-06 08:08] LABS: *SPE A/G RATIO 1.1 (0.7-1.7); *SPE ALBUMIN 3.2 g/dL (2.9-4.4); *SPE ALPHA-1-GLOBULIN 0.3 g/dL (0.0-0.4); *SPE ALPHA-2-GLOBULIN 0.6 g/dL (0.4-1.0); *SPE BETA GLOBULIN 0.9 g/dL (0.7-1.3); *SPE M-SPIKE Not Observed g/dL (Not Observed); *SPEGAMMA GLOBULIN 1.3 g/dL (0.4-1.8)
[2019-02-06 08:15] LABS: BASOPHILS % (AUTO) 0.6 % (0.0-2.0); EOSINOPHILS % (AUTO) 3.3 % (0.0-6.0); HEMATOCRIT 32 % (33-45); HEMOGLOBIN 10.8 g/dL (11.5-14.8); LYMPHOCYTES # (AUTO) 1.5 /CMM (0.8-4.8); LYMPHOCYTES % (AUTO) 27.2 % (20.0-44.0); MEAN CORPUSCULAR HGB CONC 33 g/dl (31.0-36.0); MEAN CORPUSCULAR VOLUME 93 fL (82-100); MONOCYTES # (AUTO) 0.5 /CMM (0.1-1.30); MONOCYTES % (AUTO) 9.8 % (2.0-12.0); NEUTROPHILS # (AUTO) 3.3 /CMM (1.8-8.9); NEUTROPHILS % (AUTO) 59.1 % (43.0-81.0); PLATELET COUNT (AUTO) 256 /CMM (150-450); RED BLOOD CELL COUNT(AUTO) 3.48 MIL/uL (4.0-5.2); WHITE BLOOD COUNT (AUTO) 5.6 K/uL (4.3-11.0)
[2019-02-06] MEDS: DOCUSATE SODIUM 100 MG CAPSULE PO SCH (08:20)
[2019-02-06] MEDS: PANTOPRAZOLE 40 MG TABLET.DR PO SCH (08:20)
[2019-02-06] MEDS: LEVOTHYROXINE SODIUM 137 MCG TABLET PO SCH (08:20)
[2019-02-06 08:23] VITALS: BP 141/71
[2019-02-06] MEDS: METOPROLOL SUCCINATE 25 MG TAB.SR.24H PO SCH (08:23)
[2019-02-06 08:39] LABS: CALCIUM, SERUM 7.9 mg/dL (8.5-10.1); CREATININE 1.6 mg/dL (0.6-1.3); POTASSIUM 3.6 mmol/L (3.5-5.1)
[2019-02-06] MEDS ORDERED: Fluoxetine 10 mg capsule PO SCH (09:00)
[2019-02-06] MEDS: LORAZEPAM 1 MG TABLET PO SCH (12:05)
[2019-02-06] MEDS ORDERED: DOCU-270 PO (12:11)
[2019-02-06] MEDS ORDERED: FLUO-119 PO (12:11)
[2019-02-06] MEDS ORDERED: LEVO500T90 PO (12:11)
[2019-02-06 14:11] LABS: PTH, INTACT 57 pg/mL (15-65)
== END 2019-02-06 15:00 | DRG 689 ==
LOC: ER 21:43 → GPS 23:29 → TELE 02-04 00:42 → MED 02-04 01:05
PROVIDERS: ADMIT Registered Nurse; ATTEND Nurse Practitioner Acute Care
DX: N39.0 Urinary tract infection, site not specified (principal); N17.0 Acute kidney failure with tubular necrosis; I50.30 Unspecified diastolic (congestive) heart failure; R45.851 Suicidal ideations; E87.1 Hypo-osmolality and hyponatremia; F33.2 Major depressive disorder, recurrent severe without psychotic features; I11.0 Hypertensive heart disease with heart failure; E86.0 Dehydration; F41.9 Anxiety disorder, unspecified; Z98.84 Bariatric surgery status; Z98.890 Other specified postprocedural states; E66.9 Obesity, unspecified; E87.6 Hypokalemia; E03.9 Hypothyroidism, unspecified; Z79.899 Other long term (current) drug therapy; Z68.32 Body mass index [BMI] 32.0-32.9, adult; G47.00 Insomnia, unspecified; B96.89 Other specified bacterial agents as the cause of diseases classified elsewhere; F10.21 Alcohol dependence, in remission
CPT/HCPCS: 36415; 71045-TC; 80048-TC; 80053-TC; 80061-TC; 80076-TC; 80305; 81000-TC; 82550-TC; 82570-TC; 83735-TC; 83970; 84100-TC; 84155; 84155-TC; 84165; 84300-TC; 84443-TC; 85025-TC; 87081-TC; 87086-TC; G0378; G0480; J1650; J7030; Q0163

== ENCOUNTER 2019-02-06 15:15 | Inpatient (IN) | payer MEDICARE, MEDICAID ==
[~2019-02-06] VITALS: Ht 157.5 cm; Wt 81.6 kg
[~2019-02-06 15:15] MED LIST changes: +DOCU-270 PO; +FLUO-119 PO; +LEVO500T90 PO
[2019-02-06 16:00] VITALS: BP 158/86
[2019-02-06] MEDS ORDERED: TEMAZEPAM 7.5 MG CAPSULE PO PRN (16:00)
[2019-02-06] MEDS ORDERED: MAGNESIUM HYDROXIDE 30 ML UDC PO PRN (16:00)
[2019-02-06] MEDS ORDERED: QUETIAPINE FUMARATE 25 MG TABLET PO PRN (16:00)
[2019-02-06] MEDS ORDERED: MAG HYDROX/AL HYDROX/SIMETH 30 ML UDC PO PRN (16:00)
--- NOTE | 2019-02-06 17:00 | NUR ---
GPS/ RN-NOTES ADMITTED 68 FEMALE PATIENT FROM [facility]. PATIENT ON 5150 FOR DTS. HOLD WAS VERIFIED UPON FACE TO FACE ASSESSMENT. PATIENT ALERT ORIENTED X3 AMBULATORY WITH STEADY GAIT.NOTED PATIENT WITH DEPRESSED ,FLAT AFFECT AND EASILY ANGRY BEHAVIOR. PATIENT DENIES SI/HI. PATIENT'S RIGHT WAS REVIEWED WITH THE PATIENT WITH UNDERSTANDING AND BOOKLET WAS GIVEN TO HER. PATIENT WAS ORIENTED IN THE UNIT AND UNIT POLICIES. CALLED [facility] @ [phone] (SIGNIFICANT OTHERS) AND LEFT MSG. VIA VOICE MAIL. DR. WOO (PSYCHIATRIST) AND LUDY JOSUE ( PROFESSOR OF LANGUAGES) MADE AWARE WITH ORDERS. PATIENT REFUSED MRSA SWAB DESPITE EXPLANATIONS RISK AND BENEFITS, BODY ASSESSMENT DONE ON UPPER PART OF THE BODY BUT REFUSED LOWER EXTREMITY ASSESSMENT. WILL ENDORSE TO NEXT SHIFT FOR FOLLOW UP AND CONTINUITY OF ADMISSION.
--- NOTE | 2019-02-06 17:55 | NUR ---
GPS/RN-NOTES RECEIVED T.O FROM DR. WOO OF PROZAC 20MG P.O DAILY.NOTED AND CARRIED OUT.
--- NOTE | 2019-02-06 19:40 | NUR ---
GPS RN NOTES RECEIVED PT ON BED. SLEEPING. NO RESPIRATORY DISTRESS NOTED. PT CALM ON AGGRESSION. WILL MONITOR PT CLOSELY.
[2019-02-06] MEDS: ACETAMINOPHEN 325 MG TABLET PO PRN (20:04)
[2019-02-06 20:25] VITALS: BP 136/81
[2019-02-06] MEDS: LORAZEPAM 0.5 MG TABLET PO PRN (22:02)
[2019-02-07] MEDS: ACETAMINOPHEN 325 MG TABLET PO PRN ×3 (01:55→19:36)
[2019-02-07] MEDS: LORAZEPAM 0.5 MG TABLET PO PRN ×3 (04:23→21:39)
[2019-02-07 07:17] LABS: ALBUMIN 2.9 g/dL (3.4-5.0); BILIRUBIN,TOTAL 0.5 mg/dL (0.2-1.0); CALCIUM, SERUM 8.2 mg/dL (8.5-10.1); CREATININE 1.3 mg/dL (0.6-1.3); POTASSIUM 3.3 mmol/L (3.5-5.1); TOTAL PROTEIN, SERUM 6.6 g/dL (6.4-8.2)
[2019-02-07 07:21] LABS: CHOLESTEROL 108 mg/dL (<200); HDL CHOLESTEROL 53 mg/dL (40-60); LDL 49 mg/dL (0-99); TRIGLYCERIDES 54 mg/dL (30-150)
[2019-02-07] MEDS: LEVOTHYROXINE SODIUM 137 MCG TABLET PO SCH (07:46)
[2019-02-07 08:00] VITALS: BP 130/64
[2019-02-07] MEDS: METOPROLOL SUCCINATE 25 MG TAB.SR.24H PO SCH (08:32)
[2019-02-07] MEDS: DOCUSATE SODIUM 100 MG CAPSULE PO SCH ×2 (08:32→16:28)
[2019-02-07] MEDS: FLUOXETINE HCL 20 MG CAPSULE PO SCH (08:32)
[2019-02-07] MEDS ORDERED: ZOLPIDEM TARTRATE 5 MG TABLET PO PRN (10:00)
--- NOTE | 2019-02-07 10:26 | NUR ---
GPS/RN-NOTES PATIENT REQUESTING ATIVAN FOR ANXIETY. ATIVAN 0.5MG P.O GIVEN PRN ORDER. WILL CONT. MONITORING FOR SAFETY AND BEHAVIOR.
[2019-02-07] MEDS ORDERED: POTASSIUM CHLORIDE 20 MEQ TAB.PRT.SR PO SCH (11:30)
--- NOTE | 2019-02-07 11:30 | NUR ---
GPS/RN-NOTES PATIENT LAYING IN BED INTERMITTENTLY SLEEPING,CALM,NO ACUTE DISTRESS NOTED.
--- NOTE | 2019-02-07 11:31 | NUR ---
TORSTEN called the pts partner, Gaston Ruiz ([phone]), and was unable to leave a message regarding the pt.
--- NOTE | 2019-02-07 11:32 | NUR ---
TORSTEN called both of the numbers for Gaston Ruiz that were on the hold ([phone]) and ([phone]) and was unable to make contact or leave a message.
--- NOTE | 2019-02-07 11:33 | NUR ---
Initial Discharge Plan: Pt currently resides in an apartment located at [address] [place] [address] with her partner, Gaston Ruiz ([phone]). Per pt, she would like to return to her home as soon as possible. SW will work with the pt and the MD regarding appropriate discharge planning. SW will form a safe and proper discharge.
--- NOTE | 2019-02-07 11:33 | NUR ---
TORSTNE called Ms. Castelan ([phone]) with [facility] and was unable to leave a message. TORSTEN will attempt a different number.
--- NOTE | 2019-02-07 11:52 | NUR ---
TORSTEN called the assigned APS SW. Rodarte ([phone]), and left a message for her regarding the pt.
--- NOTE | 2019-02-07 11:57 | NUR ---
GPS/RN-NOTES PATIENT REQUESTING TYLENOL FOR RIGHT LEG PAIN. TYLENOL 650MG P.O GIVEN PRN ORDER. WILL CONT. MONITORING FOR SAFETY.
--- NOTE | 2019-02-07 13:00 | NUR ---
GPS/RN-NOTES PATIENT SLEEPING COMFORTABLY AT THIS TIME ,NO ACUTE DISTRESS NOTED.
--- NOTE | 2019-02-07 15:53 | NUR ---
SW spoke to the pt who gave her the accurate number for her partner, Gaston ([phone]).
[2019-02-07 16:00] VITALS: BP 131/67
--- NOTE | 2019-02-07 16:04 | NUR ---
PC Hearing Notification: TORSTEN called the pts partner, Gaston ([phone]), and informed him about the hearing and the pts treatment plan and initial discharge plan. He stated that he would like to attend.
[2019-02-07 20:00] VITALS: BP 148/68
[2019-02-08 07:22] LABS: CALCIUM, SERUM 8.4 mg/dL (8.5-10.1); CREATININE 1.2 mg/dL (0.6-1.3); POTASSIUM 3.2 mmol/L (3.5-5.1)
[2019-02-08 08:00] VITALS: BP 150/93
[2019-02-08] MEDS: POTASSIUM CHLORIDE 20 MEQ TAB.PRT.SR PO SCH ×4 (08:00→11:43)
[2019-02-08] MEDS: METOPROLOL SUCCINATE 25 MG TAB.SR.24H PO SCH (08:00)
[2019-02-08] MEDS: FLUOXETINE HCL 20 MG CAPSULE PO SCH (08:00)
[2019-02-08] MEDS: LEVOTHYROXINE SODIUM 137 MCG TABLET PO SCH (08:00)
[2019-02-08] MEDS: DOCUSATE SODIUM 100 MG CAPSULE PO SCH (08:00)
[2019-02-08] MEDS: LORAZEPAM 0.5 MG TABLET PO PRN (08:01)
[2019-02-08] MEDS ORDERED: LOSARTAN POTASSIUM 25 MG TABLET PO SCH (11:30)
--- NOTE | 2019-02-08 12:24 | NUR ---
GROUP NOTE: SW encouraged pt to attend group on 02/08/19 at 1000 but pt refused to attend stating she wanted to stay in her room.
--- NOTE | 2019-02-08 15:34 | NUR ---
TORSTEN faxed a referral to [facility] to the fax number: [phone].
--- NOTE | 2019-02-08 15:43 | NUR ---
Discharge Note: Pt was discharged home located at [address] [address], [address], [place] [address]; ([phone]). Pts friend, Gaston ([phone]), picked her up. Pt was referred to [facility]. Upon discharge, the pt appeared to be in a euthymic mood and presented with a content and calm affect. Pt denied both suicidal and homicidal ideation as well as auditory and visual hallucinations. Pt will be under the care of her psychiatrist, [place]. [place], [place] [address] [address]; ([phone]) and her cfd engineer, Dr. Pollock, located at [address] [place] [address]; .
--- NOTE | 2019-02-08 15:53 | NUR ---
PT. WITH CERTIFICATION REVIEW HEARING REPRESENTED BY HEARING REFEREE, ADVOCATE AND HOSPITAL STAFF. THE PT., AFTER TALKING WITH THE ADVOCATE, HAS DECIDED TO: BE PRESENT AT THE CERTIFICATION REVIEW HEARING. AFTER CONSIDERING ALL THE THE EVIDENCE PRESENTED, THE HEARING REFEREE FINDS THAT: THERE IS NOT PROBABLE CAUSE TO BELIEVE THAT THE PERSON , A RESULT OF A MENTAL DISORDER IS: A DANGER TO SELF, A DANGER TO OTHERS OR GRAVELY DISABLED. THE PT. MUST BE RELEASED OR REMAIN AT THE FACILITY ON VOLUNTARY BASIS. PT. WANTED TO BE DISCHARGED. DR. WOO WAS NOTIFIED AND GAVE A DISCHARGE ORDER.
[2019-02-08 16:05] VITALS: BP 130/80
--- NOTE | 2019-02-08 16:15 | NUR ---
Pt. left the unit with belongings and with her room mate Gaston Vaughan. Pt. signed the discharge papers, refused for pictures for her skin and José Miguel made aware of the discharge and said OK for discharge and provided a prescriptions. Pt. was instructed on meds to continue at home and verbalizes understanding and instructed to make a follow up with psych and medical doctors and agreed. Pt. without distress, denies suicidal and homicidal. Pt. left the unit and [facility], ambulatory and on stable condition.
== END 2019-02-08 16:15 | disposition home or self-care (01) | DRG 885 ==
LOC: GPS 15:15
PROVIDERS: ADMIT Psychiatry & Neurology Psychiatry; ATTEND Nurse Practitioner Acute Care
DX: F33.2 Major depressive disorder, recurrent severe without psychotic features (principal); I11.0 Hypertensive heart disease with heart failure; I50.30 Unspecified diastolic (congestive) heart failure; N39.0 Urinary tract infection, site not specified; R45.851 Suicidal ideations; E44.1 Mild protein-calorie malnutrition; B96.89 Other specified bacterial agents as the cause of diseases classified elsewhere; E03.9 Hypothyroidism, unspecified; F41.9 Anxiety disorder, unspecified; G47.00 Insomnia, unspecified; E87.6 Hypokalemia; Z68.32 Body mass index [BMI] 32.0-32.9, adult; F10.20 Alcohol dependence, uncomplicated
CPT/HCPCS: 36415; 80048-TC; 80053-TC; 80061-TC; 87081-TC